=== PATIENT | male | born 1970 | race Caucasian/White ===

== ENCOUNTER 2018-06-15 11:37 | Day surgery (SDC) | payer OTHER ==
[~2018-06-15 11:37] MED LIST: LIDOCAINE 2% INJ 100 MG/5 ML SDV (FOR ANES.) As Ordered; PROPOFOL 200 MG/20 ML VIAL As Ordered
[2018-06-15] MEDS ORDERED: PROPOFOL 200 MG/20 ML VIAL As Ordered (11:51)
[2018-06-15] MEDS: NS 1,000 ML IV (12:40)
[2018-06-15] MEDS ORDERED: PHENYLephrine HCL 500 MCG/5 ML (100MCG/ML) SYRINGE (J2370) As Ordered (13:52)
== END 2018-06-15 14:30 | disposition home or self-care (01) ==
LOC: M OPP 11:37
DX: K62.5 Hemorrhage of anus and rectum (principal); R19.4 Change in bowel habit; R19.7 Diarrhea, unspecified; D12.5 Benign neoplasm of sigmoid colon; I10 Essential (primary) hypertension; N46.11 Organic oligospermia; Z80.42 Family history of malignant neoplasm of prostate; Z80.8 Family history of malignant neoplasm of other organs or systems; Z88.5 Allergy status to narcotic agent; Z79.899 Other long term (current) drug therapy
CPT/HCPCS: 45380

== ENCOUNTER → 2019-01-08 | Outpatient (REF) | payer OTHER ==
[~2019-01-08] MED LIST changes: +CLAR10CA3 PO; +FLON1SPR; -LIDOCAINE 2% INJ 100 MG/5 ML SDV (FOR ANES.) As Ordered; -PROPOFOL 200 MG/20 ML VIAL As Ordered
[2019-01-08 13:25] LABS: INFLUENZA A AMPLIFICATION POSITIVE (NEGATIVE); INFLUENZA B AMPLIFICATION NEGATIVE (NEGATIVE)
== END ==
LOC: M LAB REF 12:00
PROVIDERS: ATTEND Physician Assistant
DX: J11.1 Influenza due to unidentified influenza virus with other respiratory manifestations (principal)

== ENCOUNTER 2024-05-26 06:58 | Day surgery (SDC) | payer OTHER ==
[~2024-05-26] VITALS: Ht 157.5 cm; Wt 69.3 kg
[~2024-05-26 06:58] MED LIST changes: +ATOR1TAB19 PO; +PRIL20TA2 PO
[2024-05-26] MEDS ORDERED: LIDOCAINE 2% 100MG/5ML SDV (FOR ANES.) As Ordered ONE (07:06)
[2024-05-26] MEDS ORDERED: propofoL 200 MG/20 ML VIAL As Ordered ONE (07:06)
[2024-05-26] MEDS: NS 1,000 ML IV ONE (07:30)
[2024-05-26 08:53] VITALS: TEMP 97.6
[2024-05-26 09:11] VITALS: BP 126/95; O2SAT 99
== END 2024-05-26 09:18 | disposition home or self-care (01) ==
LOC: M OPP 06:58
PROVIDERS: ATTEND Surgery
DX: Z12.11 Encounter for screening for malignant neoplasm of colon (principal); Z86.010 Personal history of colon polyps; K63.5 Polyp of colon; Z88.5 Allergy status to narcotic agent; Z91.011 Allergy to milk products; Z79.02 Long term (current) use of antithrombotics/antiplatelets; Z79.1 Long term (current) use of non-steroidal anti-inflammatories (NSAID); Z79.52 Long term (current) use of systemic steroids; Z79.899 Other long term (current) drug therapy